=== PATIENT | female | born 1990 | race Two or more races ===

== ENCOUNTER 2025-02-05 11:56 | Emergency (ER) | payer OTHER ==
[~2025-02-05] VITALS: Ht 160 cm; Wt 59.0 kg
[2025-02-05] MEDS ORDERED: AMBIEN10 MG (12:16)
[2025-02-05] MEDS ORDERED: 0.9 % SODIUM CHLORIDE 1,000 ML IV STA (12:23)
[2025-02-05 13:12] LABS: BASO % 0.4 % (0.1-1.2); EOS # 0.06 (0.04-0.54); EOS % 1.2 % (0.7-7.0); LYMPH # 1.64 (1.18-3.74); LYMPH % 31.5 % (19.3-53.1); MEAN PLATELET VOLUME 8.70 fl (9.4-12.4); MONO # 0.37 (0.24-0.82); MONO % 7.1 % (4.7-12.5); NEUT # 3.11 (1.56-6.13); NEUT % 59.6 % (34.0-71.1); RED CELL DISTRIBUTION WIDTH 17.9 % (11.6-14.4)
[2025-02-05 13:47] LABS: BUN CREA RATIO 18.0 (7.0-25.0); CREATININE SERUM 0.62 mg/dL (0.55-1.02); GFR 109.54; GLUCOSE FASTING 91.0 mg/dL (65-100); OSMOLALITY SERUM 280.0 MOSM/KG (275-295); URINE APPEARANCE Clear; URINE BILIRRUBIN Negative (NEGATIVE); URINE BLOOD Negative; URINE COLOR Yellow; URINE GLUCOSE Negative (NEGATIVE); URINE KETONE Negative (NEGATIVE); URINE LEUKOCYTE Negative; URINE NITRATE Negative; URINE PROTEIN Negative (NEGATIVE); URINE UROBILINOGEN 0.2 E.U./dl
[2025-02-05 13:48] LABS: URINE BACTERIA 1123.1 uL (0.0-1933); URINE EPITHELIAL CELLS 43.6 uL (0.0-38.8); URINE WBC 11.6 uL (0.0-23.2)
[2025-02-05 13:50] LABS: URINE CAST 0.14 uL (0.0-1.40); URINE RBC 1.7 uL (0.0-20.8)
[2025-02-05] MEDS ORDERED: SURFAK240 M1 PO (17:24)
[2025-02-05] MEDS ORDERED: PROTONIX40 MG PO (17:24)
== END 2025-02-05 19:20 | disposition home or self-care (01) ==
LOC: ER 11:56
PROVIDERS: Emergency Medicine
DX: K62.5 Hemorrhage of anus and rectum (principal)
CPT/HCPCS: 36415; 74177; Q9965

== ENCOUNTER 2025-04-12 13:08 | Emergency (ER) | payer OTHER ==
[~2025-04-12] VITALS: Ht 160 cm; Wt 61.2 kg
[~2025-04-12 13:08] MED LIST: AMBIEN10 MG; PROTONIX40 MG PO; SURFAK240 M1 PO
[2025-04-12] MEDS ORDERED: 0.9 % SODIUM CHLORIDE 1,000 ML IV STA (14:08)
[2025-04-12] MEDS ORDERED: DIATRIZOATE MEGLUMINE, SODIUM 30 ML BOTTLE ONE (14:09)
[2025-04-12 15:10] LABS: BASO % 0.7 % (0.1-1.2); EOS # 0.05 (0.04-0.54); EOS % 0.9 % (0.7-7.0); LYMPH # 1.77 (1.18-3.74); LYMPH % 31.2 % (19.3-53.1); MEAN PLATELET VOLUME 8.90 fl (9.4-12.4); MONO # 0.38 (0.24-0.82); MONO % 6.7 % (4.7-12.5); NEUT # 3.43 (1.56-6.13); NEUT % 60.3 % (34.0-71.1); RED CELL DISTRIBUTION WIDTH 11.9 % (11.6-14.4)
[2025-04-12 15:16] LABS: BUN CREA RATIO 18.0 (7.0-25.0); CREATININE SERUM 0.65 mg/dL (0.55-1.02); GFR 103.72; GLUCOSE FASTING 85.0 mg/dL (65-100); OSMOLALITY SERUM 278.0 MOSM/KG (275-295)
[2025-04-12 16:37] LABS: URINE APPEARANCE Clear; URINE BILIRRUBIN Negative (NEGATIVE); URINE BLOOD Negative; URINE COLOR Yellow; URINE GLUCOSE Negative (NEGATIVE); URINE KETONE Negative (NEGATIVE); URINE LEUKOCYTE Negative; URINE NITRATE Negative; URINE PROTEIN Negative (NEGATIVE); URINE UROBILINOGEN 0.2 E.U./dl
[2025-04-12 16:40] LABS: URINE BACTERIA 830.2 uL (0.0-1933); URINE EPITHELIAL CELLS 37.2 uL (0.0-38.8); URINE RBC 6.5 uL (0.0-20.8); URINE WBC 9.3 uL (0.0-23.2)
[2025-04-12 16:45] LABS: URINE CAST 0.00 uL (0.0-1.40)
[2025-04-12] MEDS ORDERED: PROTONIX40 MG PO (21:05)
[2025-04-12] MEDS ORDERED: LEVSIN/SL0.125 MG SL (21:05)
== END 2025-04-12 21:16 | disposition home or self-care (01) ==
LOC: ER 13:08
PROVIDERS: Emergency Medicine
DX: K62.5 Hemorrhage of anus and rectum (principal)
CPT/HCPCS: 36415; 74177; Q9965